=== PATIENT | female | born 1955 | race African-American/Black ===

== ENCOUNTER 2022-11-27 01:28 | Inpatient (IN) | payer OTHER ==
[2022-11-27 01:49] VITALS: BMI 24.1
[2022-11-27] MEDS ORDERED: LIDOCAINE HCL 2% JELLY 6 ML TP ONE ×2 (01:53→01:59)
[2022-11-27 04:17] LABS: BASO % 0.8 % (0-2.0); EOS % 3.6 % (0-4.5); HEMATOCRIT 41.8 % (32.4-45.2); HEMOGLOBIN 13.9 GM/dL (10.7-15.3); INR 1.05 (0.83-1.09); LYMPH % 24.1 % (8-40); MCH 27.1 pg (25.7-33.7); MCHC 33.3 g/dl (32.0-36.0); MEAN CELL VOLUME 81.3 fl (80-96); MEAN PLT VOLUME 8.4 fl (7.5-11.1); MONO % 13.9 % (3.8-10.2); NEUT % 57.6 % (42.8-82.8); PLATELET COUNT 231 10^3/uL (134-434); PROTHROMBIN TIME (PATIENT) 12.2 SEC (9.7-13.0); RBC 5.13 M/mm3 (3.60-5.2); RDW 15.9 % (11.6-15.6); WHITE BLOOD COUNT 7.2 K/mm3 (4.0-10.0)
[2022-11-27 04:18] LABS: POTASSIUM 4.2 mmol/L (3.5-5.1)
[2022-11-27 04:25] LABS: CALCIUM 9.6 mg/dL (8.5-10.1)
[2022-11-27 04:26] LABS: ALBUMIN 2.5 g/dl (3.4-5.0); BLOOD UREA NITROGEN 17.8 mg/dL (7-18)
[2022-11-27 04:29] LABS: BILIRUBIN,TOTAL 0.5 mg/dL (0.2-1); CREATININE 0.9 mg/dL (0.55-1.3); TOT PROT 8.2 g/dl (6.4-8.2)
[2022-11-27 06:49] VITALS: PULSE 85
[2022-11-27] MEDS ORDERED: INSULIN SLIDING SCALE (NOVOLOG) 1 VIAL SQ SCH (07:00)
[2022-11-27] MEDS ORDERED: VALPROATE SODIUM 250 MG/5 ML UNIT DOSE CUP GT SCH (10:00)
[2022-11-27] MEDS ORDERED: amLODIPine BESYLATE 10 MG TABLET (FP) GT SCH (10:00)
[2022-11-27] MEDS ORDERED: METOPROLOL TARTRATE 25 MG TABLET (FP) GT SCH (10:00)
[2022-11-27] MEDS ORDERED: LISINOPRIL 5 MG TABLET GT SCH (10:00)
[2022-11-27] MEDS ORDERED: FENTANYL CITRATE/PF 50 MCG/ML VIAL ONE (10:29)
[2022-11-27] MEDS ORDERED: FENTANYL CITRATE/PF 50 MCG/ML VIAL IVPUSH ONE (10:51)
[2022-11-27 11:30] VITALS: BP 111/79; RESP 18; TEMP 98.8
[2022-11-27] MEDS ORDERED: ATORVASTATIN CA 20 MG TABLET (FP) PO SCH (22:00)
[2022-11-27] MEDS ORDERED: MELATONIN 5 MG TABLETS GT SCH (22:00)
[2022-11-27] MEDS ORDERED: LATANOPROST 0.005% OPHTH SOLN 2.5ML BOTTLE OU SCH (22:00)
== END 2022-11-27 11:46 | DRG 909 ==
LOC: JER 01:28 → JERBED 02:02
PROVIDERS: ADMIT Internal Medicine
PROC: 0DP63UZ Removal of Feeding Device from Stomach, Percutaneous Approach (ICD-10-PCS; principal; 2022-11-27)
PROC: 0DH63UZ Insertion of Feeding Device into Stomach, Percutaneous Approach (ICD-10-PCS; 2022-11-27)
DX: T85.528A Displacement of other gastrointestinal prosthetic devices, implants and grafts, initial encounter (principal); Y83.8 Other surgical procedures as the cause of abnormal reaction of the patient, or of later complication, without mention of misadventure at the time of the procedure; I10 Essential (primary) hypertension; E11.9 Type 2 diabetes mellitus without complications; E78.5 Hyperlipidemia, unspecified; F31.9 Bipolar disorder, unspecified; F03.90 Unspecified dementia, unspecified severity, without behavioral disturbance, psychotic disturbance, mood disturbance, and anxiety; R13.10 Dysphagia, unspecified; Z86.73 Personal history of transient ischemic attack (TIA), and cerebral infarction without residual deficits
CPT/HCPCS: 36415; 49440; 80053; 82962; 85025; 85610; 85730; 86900; 93005; 93010; 99285-25; C1769; C1887

== ENCOUNTER 2023-10-10 18:43 | Inpatient (IN) | payer OTHER ==
[2023-10-10 22:21] LABS: VENOUS BASE EXCESS 2.4 mmol/L (-2-2); VENOUS O2 SATURATION 61.5 % (70-80); VENOUS PCO2 49.4 mmHg (38-52); VENOUS PH 7.379 (7.310-7.410)
[2023-10-10 22:23] LABS: EOS % 4.7 % (0-4.5); HEMATOCRIT 42.6 % (32.4-45.2); HEMOGLOBIN 14.1 GM/dL (10.7-15.3); LYMPH % 25.9 % (8-40); MCH 27.7 pg (25.7-33.7); MCHC 33.2 g/dl (32.0-36.0); MEAN CELL VOLUME 83.4 fl (80-96); MEAN PLT VOLUME 8.6 fl (7.5-11.1); MONO % 10.4 % (3.8-10.2); PLATELET COUNT 277 10^3/uL (134-434); RBC 5.11 M/mm3 (3.60-5.2); RDW 15.8 % (11.6-15.6); WHITE BLOOD COUNT 7.3 K/mm3 (4.0-10.0)
[2023-10-10 22:30] LABS: INR 1.07 (0.83-1.09); PROTHROMBIN TIME (PATIENT) 12.3 SEC (9.7-13.0)
[2023-10-10 22:32] LABS: ACTIVATED PTT 34.4 SECONDS (25.2-36.5)
[2023-10-10 22:39] LABS: POTASSIUM 4.2 mmol/L (3.5-5.1)
[2023-10-10 22:41] LABS: CALCIUM 9.8 mg/dL (8.5-10.1)
[2023-10-10 22:42] LABS: ALBUMIN 2.6 g/dl (3.4-5.0); BLOOD UREA NITROGEN 17.3 mg/dL (7-18)
[2023-10-10 22:45] LABS: CREATININE 0.9 mg/dL (0.55-1.3)
[2023-10-10 22:46] LABS: BILIRUBIN,TOTAL 0.4 mg/dL (0.2-1); TOT PROT 8.1 g/dl (6.4-8.2)
[2023-10-11 04:04] LABS: URINE APPEARANCE CLEAR; URINE BILIRUBIN NEGATIVE (NEGATIVE); URINE COLOR YELLOW; URINE GLUCOSE (UA) NEGATIVE (NEGATIVE); URINE KETONE NEGATIVE (NEGATIVE)
[2023-10-11 04:05] LABS: PH,URINE 8.5 (5.0-8.0); URINE PROTEIN NEGATIVE (NEGATIVE)
[2023-10-11 04:06] LABS: URINE LEUK ESTERASE NEGATIVE (NEGATIVE); URINE NITRITE NEGATIVE (NEGATIVE); URINE UROBILINOGEN 0.2 mg/dL (0.2-1.0)
[2023-10-11 04:07] LABS: YEAST REVIEW (NEGATIVE)
[2023-10-11] MEDS: INSULIN ASPART SLIDING SCALE (NOVOLOG) 1 VIAL SQ SCH ×2 (06:49→11:00)
[2023-10-11] MEDS ORDERED: ACETAMINOPHEN 1000 MG/100 ML BAG IVPB PRN (10:12)
[2023-10-11] MEDS ORDERED: METOPROLOL TARTRATE 5 MG/5 ML VIAL IVPUSH PRN ×2 (10:12→10:14)
[2023-10-11] MEDS ORDERED: amLODIPine BESYLATE 10 MG TABLET (FP) ONE (10:35)
[2023-10-11] MEDS: amLODIPine BESYLATE 10 MG TABLET (FP) NGT ONE (10:52)
[2023-10-11] MEDS: DEXTROSE 5%-NORMAL SALINE 1,000 ML IV SCH (18:20)
[2023-10-11] MEDS ORDERED: VALPROATE SODIUM 500 MG/5 ML VIAL IVPB SCH (22:00)
[2023-10-11] MEDS: METOPROLOL TARTRATE 25 MG TABLET (FP) NGT SCH (23:03)
[2023-10-11] MEDS: LATANOPROST 0.005% OPHTH SOLN 2.5ML BOTTLE OD SCH (23:04)
[2023-10-12] MEDS: VALPROATE SODIUM INJECTION 500 MG in SODIUM CHLORIDE 100 ML IVPB SCH (00:03)
[2023-10-12 09:13] LABS: BASO % 0.9 % (0-2.0); HEMATOCRIT 43.3 % (32.4-45.2); LYMPH % 21.3 % (8-40); MCH 27.3 pg (25.7-33.7); MCHC 32.2 g/dl (32.0-36.0); MEAN CELL VOLUME 84.7 fl (80-96); MEAN PLT VOLUME 8.7 fl (7.5-11.1); MONO % 12.2 % (3.8-10.2); NEUT % 62.6 % (42.8-82.8); PLATELET COUNT 274 10^3/uL (134-434); RBC 5.11 M/mm3 (3.60-5.2); RDW 16.2 % (11.6-15.6)
[2023-10-12] MEDS: ENOXAPARIN NA (PORCINE) 40 MG/0.4 ML DISP.SYRIN SQ SCH (10:45)
[2023-10-12] MEDS: LISINOPRIL 5 MG TABLET NGT SCH (10:45)
[2023-10-13 09:28] VITALS: RESP 18
[2023-10-14] MEDS: VALPROATE SODIUM 250 MG/5 ML UNIT DOSE CUP PO SCH (05:19)
[2023-10-14 08:43] VITALS: BP 145/97; PULSE 72; TEMP 98.3
[2023-10-14 15:31] VITALS: BMI 29.4
== END 2023-10-14 18:31 | DRG 394 ==
LOC: JER 18:43 → JERBED 10-11 06:32 → J6S 10-11 11:00 → OBSVTOIN 10-12 11:15
PROVIDERS: ADMIT Family Medicine; ATTEND Family Medicine
PROC: 0DP6XUZ Removal of Feeding Device from Stomach, External Approach (ICD-10-PCS; principal; 2023-10-10)
PROC: 0DH67UZ Insertion of Feeding Device into Stomach, Via Natural or Artificial Opening (ICD-10-PCS; 2023-10-10)
DX: K94.23 Gastrostomy malfunction (principal); J98.11 Atelectasis; J45.909 Unspecified asthma, uncomplicated; E11.9 Type 2 diabetes mellitus without complications; G47.00 Insomnia, unspecified; I10 Essential (primary) hypertension; F31.9 Bipolar disorder, unspecified; R29.6 Repeated falls; F03.90 Unspecified dementia, unspecified severity, without behavioral disturbance, psychotic disturbance, mood disturbance, and anxiety; R09.02 Hypoxemia; E66.9 Obesity, unspecified; Z68.29 Body mass index [BMI] 29.0-29.9, adult; Z86.73 Personal history of transient ischemic attack (TIA), and cerebral infarction without residual deficits; Y83.8 Other surgical procedures as the cause of abnormal reaction of the patient, or of later complication, without mention of misadventure at the time of the procedure
CPT/HCPCS: 0241U-QW; 36415; 70450-TC; 71045-TC-FY; 71275-TC; 74018-TC-FY; 80053; 81003; 82803; 82962; 84443; 84484; 85025; 85379; 85610; 85730; 87086; 93005; 93010; 99285-25; G0378; Q9967